=== PATIENT | male | born 1970 | race Caucasian/White ===

== ENCOUNTER 2018-02-18 06:49 | Day surgery (SDC) | payer BC ==
[2018-02-18] MEDS: NS 1,000 ML IV (07:00)
[2018-02-18] MEDS ORDERED: PROPOFOL 200 MG/20 ML VIAL As Ordered (08:29)
[2018-02-18] MEDS ORDERED: LIDOCAINE 2% INJ 100 MG/5 ML SDV (FOR ANES.) As Ordered (08:29)
[2018-02-18] MEDS ORDERED: PERCOCET 5MG/325MG TAB As Ordered (08:45)
== END 2018-02-18 09:28 | disposition home or self-care (01) ==
LOC: M OPP 06:49
DX: K62.5 Hemorrhage of anus and rectum (principal); K64.8 Other hemorrhoids; F17.210 Nicotine dependence, cigarettes, uncomplicated
CPT/HCPCS: 45398

== ENCOUNTER → 2022-01-16 | Outpatient (REF) | payer BC, OTHER ==
[~2022-01-16] MED LIST: BUPR-70; NICO1DIS12 TOP; OXYC1TAB23 PO
== END ==
LOC: M SFHCDERM 14:03
PROVIDERS: ATTEND Nurse Practitioner Family
DX: D03.59 Melanoma in situ of other part of trunk (principal)

== ENCOUNTER → 2022-02-10 | Outpatient (REF) | payer OTHER, BC | LOC: M LAB REF 09:06 | PROVIDERS: ATTEND Surgery | DX: Z85.820 Personal history of malignant melanoma of skin (principal); L57.0 Actinic keratosis; L90.5 Scar conditions and fibrosis of skin ==